=== PATIENT | female | born 1960 | race African-American/Black ===

== ENCOUNTER → 2016-12-12 | Outpatient (CLI) | payer OTHER ==
[~2016-12-12] MED LIST: CLIN1CAP5 PO; DIGO0.25 PO; GABA300C3 PO; GLUCTAB PO; GLYB3TAB PO; LEVEMIR SQ; LIPI40TA PO; LISI-587 PO; METO50TA PO; MILN50 PO; NAPR-576 PO; NOVOLOGP2 SQ; SOMA350T PO
--- NOTE | 2016-12-13 16:02 | EKG ---
Date Performed: 12/12/2016 Time Performed: 14:08:20 PTAGE: 56 years EKG: Sinus rhythm POSSIBLE ANTERIOR MYOCARDIAL INFARCTION , PROBABLY OLD BORDERLINE ECG Compared to prior tracing no s ignificant change PREVIOUS TRACING : 09/21/2015 08.58 DOCTOR: Lynda Myrick Interpretating Date/Time 12/13/2016 16:00:41
== END ==
LOC: HCAV 13:39
DX: D49.4 Neoplasm of unspecified behavior of bladder (principal); R94.31 Abnormal electrocardiogram [ECG] [EKG]
CPT/HCPCS: 93005